=== PATIENT | female | born 1955 | race American Indian/Alaskan Native ===

== ENCOUNTER 2017-11-29 16:04 | Inpatient (IN) | payer OTHER ==
[2017-11-29] MEDS ORDERED: Sodium Chloride 0.9% 1,000 ML IV ONE (16:45)
[2017-11-29] MEDS ORDERED: Belladonna-Phenobarbital PO STA (16:45)
[2017-11-29 17:07] LABS: BASO % 0.3 % (0.0-2.0); EOS # 0.1 K/uL (0.0-0.7); EOS % 0.6 % (0.0-4.0); HEMOGLOBIN 14.4 g/dL (11.0-16.0); LYMPH # 2.2 K/uL (1.0-4.3); LYMPH % 14.8 % (20.0-40.0); MEAN CELL VOLUME 91.9 fL (81.0-99.0); MEAN CORPUSCULAR HEMOGLOBIN 30.3 pg (27.0-31.0); MONO # 0.8 K/uL (0.0-0.8); MONO % 5.5 % (0.0-10.0); NEUT # 11.5 K/uL (1.8-7.0); NEUT % 78.8 % (50.0-75.0); NRBC % 0.1 % (0.0-2.0); RBC 4.75 Mil/uL (3.80-5.20); RED CELL DISTRIBUTION WIDTH 13.6 % (11.5-14.5); WHITE BLOOD COUNT 14.6 K/uL (4.8-10.8)
[2017-11-29] MEDS ORDERED: Sodium Chloride 0.9% 1,000 ML ONE (17:08)
[2017-11-29] MEDS ORDERED: Belladonna-Phenobarbital ONE (17:08)
[2017-11-29 17:18] LABS: ALB/GLOB RATIO 1.5 (1.0-2.1); ALBUMIN 4.8 g/dL (3.5-5.0); CALCIUM 9.6 mg/dl (8.6-10.4)
[2017-11-29] MEDS ORDERED: Iohexol 240 (50 ml) PO STA (18:03)
[2017-11-29] MEDS ORDERED: Iohexol 240 (50 ml) ONE (18:23)
[2017-11-29 18:53] LABS: SQUAMOUS EPITHIAL 9 /hpf (0-5); URINE BACTERIA FEW (<OCC); URINE BILIRUBIN NEGATIVE (NEGATIVE); URINE BLOOD NEGATIVE (NEGATIVE); URINE CLARITY Hazy (Clear); URINE COLOR Yellow (YELLOW); URINE GLUCOSE (UA) NORMAL (Normal); URINE LEUKOCYTE ESTERASE 2+ Leu/uL (Negative); URINE PROTEIN NEGATIVE (NEGATIVE); URINE UROBILINOGEN NORMAL mg/dL (0.2-1.0)
[2017-11-29] MEDS ORDERED: Morphine 4 MG/ML VIAL ONE (20:39)
--- NOTE | 2017-11-29 21:06 | C.PDOC ---
Time Seen by Provider: 11/29/17 16:37 Chief Complaint (Nursing): Abdominal Pain History Per: Patient, Family Onset/Duration Of Symptoms: Days (2) Current Symptoms Are (Timing): Still Present Severity: Moderate Location Of Pain/Discomfort: RLQ, LLQ, Suprapubic Quality Of Discomfort: "Pain" Associated Symptoms: Nausea, Vomiting Exacerbating Factors: Food Alleviating Factors: None Additional History Per: Prior Records Past Medical History Reviewed: Historical Data, Nursing Documentation, Vital Signs Vital Signs: Last Vital Signs Temp 98.5 F 11/29/17 16:06 Pulse 88 11/29/17 16:06 Resp 20 11/29/17 16:06 BP 127/86 11/29/17 16:06 Pulse Ox 100 11/29/17 16:06 - Medical History PMH: HTN Other Surgeries: Hysterectomy Family History: States: Unknown Family Hx - Social History Hx Alcohol Use: No Hx Substance Use: No - Immunization History Hx Tetanus Toxoid Vaccination: No Hx Influenza Vaccination: No Hx Pneumococcal Vaccination: No Review Of Systems Except As Marked, All Systems Reviewed And Found Negative. Constitutional: Negative for: Fever, Weakness Cardiovascular: Negative for: Chest Pain Respiratory: Negative for: Shortness of Breath Gastrointestinal: Positive for: Nausea, Vomiting, Abdominal Pain. Negative for : Melena, Hematochezia, Hematemesis Genitourinary: Negative for: Dysuria Musculoskeletal: Negative for: Neck Pain, Back Pain Skin: Negative for: Rash Neurological: Negative for: Weakness, Numbness, Headache Physical Exam - Physical Exam Appears: Non-toxic, No Acute Distress Skin: Normal Color, Warm, Dry, No Rash Head: Atraumatic, Normacephalic Eye(s): bilateral: Normal Inspection, PERRL, EOMI Neck: Normal ROM, Supple Cardiovascular: Rhythm Regular Respiratory: Normal Breath Sounds, No Accessory Muscle Use Gastrointestinal/Abdominal: Soft, Tenderness (lower abdomen) Back: No CVA Tenderness Extremity: Normal ROM Neurological/Psych: Oriented x3, Normal Motor, Normal Sensation ED Course And Treatment - Laboratory Results Result Diagrams: 11/29/17 17:03 11/29/17 17:03 Interpretation Of Abnormal: Renal insufficiency O2 Sat by Pulse Oximetry: 100 Pulse Ox Interpretation: Normal - CT Scan/US CT abd/pelv Other Rad Studies (CT/US): Read By Radiologist, Radiology Report Reviewed CT/US Interpretation: IMPRESSION: Findings consistent with presence of partial small bowel obstruction. Incidental and other non-acute findings are described above. Progress - Interventions Interventions:: Observation, Intravenous fluid - Medications Administered Intravenous: Antiemetic, Opiate - Data Reviewed Data Reviewed: Lab, Diagnostic imaging, Old records - Patient Status Patient status: Partially improved - Continuity of Care Discussed patient case with:: Patient, Family-HIPPA compliant, ED Nurse, On- call PMD-pt unassigned - Patient Plan Patient Plan: Admission Disposition Discussed With : Gerardo Ely Comment: He accepted pt on his service and gave admitting orders to the nurse. Doctor Will See Patient In The: Hospital Counseled Patient/Family Regarding: Studies Performed, Diagnosis - Disposition Disposition: HOSPITALIZED Disposition Time: 21:07 Condition: FAIR - Clinical Impression Clinical Impression: Partial small bowel obstruction
--- NOTE | 2017-11-29 22:36 | CP.PCM.HP ---
History of Present Illness - History of Present Illness History of Present Illness: COMPREHENSIVE HISTORY & PHYSICAL EXAM HPI Patient is admitted for abdominal pain and distention. Patient state they last for a few days patient has been getting lower abdominal pain with distention associated with nausea and vomiting multiple times. Patient was evaluated in emergency room. CAT scan of the abdomen showed partial small bowel obstruction. Patient had a WBC count of 14,000 no fever. Patient has a history of gynecologic ulcer surgery with large scar on the abdomen. PAST HIST. History of hypertension PERSONAL HIST: Smoking. N Alcohol. N Allergy N Travel_- . FAMILY HIST : ROS : Constitutional: Negative for weight change, chills, night sweats, fatigue Eyes : Negative for redness, swelling, itching, discharge, vision changes, blurry vision, double vision, glaucoma, cataracts, Ears: Negative for hearing loss, ringing, , tinnitus, vertigo Nose: Negative for rhinorrhea, stuffiness, sniffing, itching, postnasal drip, discoloration, nasal congestion and epistaxis. Throat: Negative for throat clearing, sore throat, hoarseness, difficulty swallowing and difficulty speaking. Respiratory: Negative for cough, , sputum production, chest tightness, wheezing, pleuritic chest pain ,daytime somnolence, chronic cough, hemoptysis, snoring at night, Cardiovascular: Negative for chest pain, palpitations, orthopnea, PND, Edema of legs, leg cramps, angina, claudication, , irregular heartbeat, Neurology: Negative for irritability, muscle weakness, numbness and tingling, seizures, tremors, migraines, slurred speech, syncope, memory loss, mood changes , recurrent headaches Gastrointestinal: Negative for, constipation, black stools, rectal bleeding, poor appetite, Genitourinary: Negative for frequent urination, hematuria, discharge, incontinence, urinary retention, frequent UTI, Psychiatric: Negative for depression, anxiety/panic, suicidal tendencies, Musculoskeletal: Negative for swollen joints, back pain, , neck pain, morning stiffness of joints, . Skin: Negative for rash, ulcers, itching, dry skin and pigmented lesions. P/E: Constitutional: Appears stated age and in no apparent distress. Head: Normocephalic. Ears: External ear canals patent without inflammation. Tympanic membranes intact with normal light reflex and landmark. Eyes: Pupils are central, bilaterally equal, symmetrical and reacts to light with normal movements and no icterus or pallor. Nose: External nares are patent. Mucosa is pink Mouth-Throat: Good general appearance and condition. No post-pharyngeal/oropharyngeal erythema and tonsillar hypertrophy. Good dental hygiene. Neck-Lymphatic: Neck is supple with normal ROM, no thyromegaly, lymph nodes or masses. JVD is normal with no carotid bruit. Lungs: Clear to percussion and auscultation with bilateral normal air entry. Cardiovascular: S1 and S2 are normal with no murmurs, gallops and rub. GI Exam: No hepatomegaly. Abdomen is soft and -tender. No Organomegaly , masses or hernias are evident and bowel sounds are normal and active. Neurology: Higher function and all cranial nerves intact, with no gross motor or sensory deficit. Superficial and deep reflexes are normal with downwards planters. No cerebellar deficit with normal gait. Musculoskeletal: No tender spots with normal curvature of the spine with no swelling or restricted ROM of the small and large joints. Extremities: Homans sign absent. Intact pulses with no pitting edema, calf tenderness or skin color changes. Skin: No rash, eruptions or abnormal skin pigmentation LAB/RADIOLOGY: ASSESMENT : Partial small bowel obstruction probably secondary to a physician from previous gynecologic surgery. Hypertension PLAN: Plan nothing by mouth, IV fluids septic workup and surgical evaluation. Present on Admission - Present on Admission Any Indicators Present on Admission: No Past Patient History - Past Social History Smoking Status: Never Smoked - CARDIAC Hx Hypertension: Yes - PSYCHIATRIC Hx Substance Use: No - SURGICAL HISTORY Hx Surgeries: Yes Other/Comment: bunions - ANESTHESIA Hx Anesthesia: No Hx Anesthesia Reactions: No Meds Allergies/Adverse Reactions: Allergies Allergy/AdvReac Type Severity Reaction Status Date / Time chloroquine Allergy RASH Verified 11/29/17 16:12 Results - Vital Signs Recent Vital Signs: Last Vital Signs Temp 98.5 F 11/29/17 16:06 Pulse 88 11/29/17 16:06 Resp 20 11/29/17 16:06 BP 127/86 11/29/17 16:06 Pulse Ox 100 11/29/17 21:07 - Labs Result Diagrams: 11/29/17 17:03 11/29/17 17:03 Labs: Laboratory Results - last 24 hr 11/29/17 11/29/17 11/29/17 17:03 17:03 18:41 WBC 14.6 H RBC 4.75 Hgb 14.4 Hct 43.6 MCV 91.9 MCH 30.3 MCHC 33.0 RDW 13.6 Plt Count 268 MPV 9.0 Neut % (Auto) 78.8 H Lymph % (Auto) 14.8 L Dupage % (Auto) 5.5 Eos % (Auto) 0.6 Baso % (Auto) 0.3 Neut # (Auto) 11.5 H Lymph # (Auto) 2.2 Dup[place] # (Auto) 0.8 Eos # (Auto) 0.1 Baso # (Auto) 0.0 Sodium 138 Potassium 4.4 Chloride 98 Carbon Dioxide 26 Anion Gap 19 BUN 31 H Creatinine 1.7 H Est GFR ( Amer) 37 Est GFR (Non-Af Amer) 30 Random Glucose 136 H Calcium 9.6 Total Bilirubin 1.1 AST 43 H ALT 22 Alkaline Phosphatase 72 Total Protein 8.1 Albumin 4.8 Globulin 3.2 Albumin/Globulin Ratio 1.5 Lipase 22 L Urine Color Yellow Urine Clarity Hazy Urine pH 6.0 Ur Specific Dixon 1.008 Urine Protein Negative Urine Glucose (UA) Normal Urine Ketones Trace Urine Blood Negative Urine Nitrate Negative Urine Bilirubin Negative Urine Urobilinogen Normal Ur Leukocyte Esterase 2+ H Urine WBC (Auto) 15 H Urine RBC (Auto) 1 Ur Squamous Epith Cells 9 H Urine Bacteria Few H
[2017-11-29] MEDS: Dextrose 5%/0.45% NS 1,000 ML IV SCH (23:29)
[2017-11-30] MEDS: Dextrose 5%/0.45% NS 1,000 ML IV SCH ×3 (05:52→11:23)
--- NOTE | 2017-11-30 08:48 | CT ---
PROCEDURE: CT Abdomen and Pelvis without intravenous contrast HISTORY: abd pain, Vomiting COMPARISON: None. TECHNIQUE: Contiguous images were obtained from the domes of the diaphragms to the upper thighs without the administration of intravenous contrast. Oral contrast was administered. Radiation dose: Total exam DLP = 313 mGy-cm. This CT exam was performed using one or more of the following dose reduction techniques: Automated exposure control, adjustment of the mA and/or kV according to patient size, and/or use of iterative reconstruction technique. FINDINGS: LOWER THORAX: Unremarkable. LIVER: Unremarkable. No gross lesion or ductal dilatation. GALLBLADDER AND BILE DUCTS: Unremarkable. PANCREAS: Fatty atrophy. No gross lesion or ductal dilatation. SPLEEN: Unremarkable. ADRENALS: Unremarkable. No mass. KIDNEYS AND URETERS: 1.8 cm right lower pole cyst. No hydronephrosis. No solid mass. VASCULATURE: Unremarkable. No aortic aneurysm. BOWEL: Dilated small bowel loops measuring up to 4.0 cm with abrupt transition in the anterior abdominal midline (series 3, image 95) in the region of the umbilicus. No gross mural thickening. APPENDIX: Unremarkable. Normal appendix. PERITONEUM: Unremarkable. No free fluid. No free air. LYMPH NODES: Unremarkable. No enlarged lymph nodes. BLADDER: Unremarkable. REPRODUCTIVE: Unremarkable. BONES: No acute fracture. OTHER FINDINGS: None. IMPRESSION: Small-bowel obstruction with transition zone in the anterior abdominal midline in the region of the umbilicus.
[2017-11-30] MEDS ORDERED: Lactated Ringer's 1,000 ML IV ONE ×2 (13:31→17:24)
--- NOTE | 2017-11-30 13:52 | CP.PCM.PN ---
Subjective - Date & Time of Evaluation Date of Evaluation: 11/30/17 Time of Evaluation: 13:49 - Subjective Subjective: CHIEF COMPLAINTS TODAY : Patient is still complaining of lower abdominal pain and distention with nausea and vomiting. Patient is afebrile, WBC count is still 14,000 ROS. HEENT : N. Resp : No cough, wheezing ,pleuritic CP ,or hemoptysis Cardio : No anginal CP, PND, orthopnea, palpitation GI : No GI bleeding . 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 Musculoskel : No joint swelling , Derm : No rash Psych : Normal affect. Ext : No swelling ,calf pain PE. Pt. is alert awake in no distress. V.S As noted in the chart Head ,ear nose,throat and eyes : Normal. Neck : Supple with normal carotids. Lungs: Clear air entry. Heart : S1 & S2 normal with S4. No murmur. Abd : Soft tender with distension Neuro : Moves all ext. with no localized deficit. Ext : No edema with intact pulses.Non tender calves Derm : No rashes or decubitus ulcer. LABS/RADIOLOGY: ASSESSMENT/PLAN : Surgical evaluation noted. Patient is scheduled for urgent expiratory laparotomy with possible lysis of the adhesions. Objective - Vital Signs/Intake and Output Vital Signs (last 24 hours): Temp Pulse Resp BP Pulse Ox 98.3 F 50 L 21 126/72 97 11/30/17 07:00 11/30/17 07:00 11/30/17 07:00 11/30/17 07:00 11/30/17 07:00 - Medications Medications: Current Medications Amlodipine Besylate (Norvasc) 5 mg PO DAILY [facility] Last Admin: 11/30/17 11:37 Dose: 5 mg Dextrose/Sodium Chloride (Dextrose 5%/0.45% Ns 1000 Ml) 1,000 mls @ 120 mls/hr IV .Q8H20M [facility] Last Admin: 11/30/17 11:23 Dose: 120 mls/hr Lactated Ringer's (Lactated Ringer's) 1,000 mls @ 500 mls/hr IV .Q2H ONE Stop: 11/30/17 15:30 Morphine Sulfate (Morphine) 4 mg IVP Q6 PRN PRN Reason: Pain, severe (8-10) Pneumococcal Polyvalent Vaccine (Pneumovax 23 Vaccine) 0.5 ml IM .ONCE ONE Stop: 12/03/17 10:01 - Labs Labs: 11/29/17 17:03 11/29/17 17:03
[2017-11-30] MEDS ORDERED: Rocuronium 10 mg/ml (5 ml) ONE (15:22)
[2017-11-30] MEDS ORDERED: Propofol 10 mg/ml Inj (20 ML) ONE (15:22)
[2017-11-30] MEDS ORDERED: ceFAZolin 1 gm in NS 1 GM/100 ML BAG IVPB ONE (15:59)
[2017-11-30] MEDS ORDERED: metroNIDAZOLE IV 500 mg/100 ml 500 MG/100 ML BAG ONE (16:00)
[2017-11-30 17:52] LABS: BASO % 0.5 % (0.0-2.0); EOS # 0.1 K/uL (0.0-0.7); EOS % 1.1 % (0.0-4.0); HEMOGLOBIN 12.6 g/dL (11.0-16.0); LYMPH # 2.3 K/uL (1.0-4.3); LYMPH % 24.4 % (20.0-40.0); MEAN CELL VOLUME 92.3 fL (81.0-99.0); MEAN CORPUSCULAR HEMOGLOBIN 30.2 pg (27.0-31.0); MEAN CORPUSCULAR HGB CONC 32.7 g/dL (33.0-37.0); MONO # 0.5 K/uL (0.0-0.8); MONO % 5.2 % (0.0-10.0); NEUT # 6.4 K/uL (1.8-7.0); NEUT % 68.8 % (50.0-75.0); RBC 4.18 Mil/uL (3.80-5.20); RED CELL DISTRIBUTION WIDTH 13.1 % (11.5-14.5); WHITE BLOOD COUNT 9.3 K/uL (4.8-10.8)
[2017-11-30 18:02] LABS: BLOOD UREA NITROGEN 10 mg/dL (7-17); CALCIUM 8.2 mg/dl (8.6-10.4); GFR AFRICAN-AMERICAN > 60; GFR NON-AFRICAN AMERICAN 50
[2017-11-30] MEDS: HYDROmorphone 0.5 mg/0.5 ml ISec IVP PRN ×3 (18:03→18:45)
[2017-11-30] MEDS: Potassium Ch 20mEq in D5-1/2NS 1,000 ML IV SCH (20:54)
[2017-11-30] MEDS: metroNIDAZOLE IV 500 mg/100 ml 500 MG/100 ML BAG IVPB SCH (22:29)
[2017-11-30] MEDS: Morphine 4 MG/ML VIAL IVP PRN (23:41)
[2017-11-30] MEDS: ceFAZolin IV 1 gm in Dextrose 1 GM/50 ML BAG IVPB SCH (23:45)
[2017-12-01] MEDS: Potassium Ch 20mEq in D5-1/2NS 1,000 ML IV SCH ×2 (04:48→05:31)
--- NOTE | 2017-12-01 05:27 | OP ---
PROCEDURE DATE: 11/30/2017 PREOPERATIVE DIAGNOSIS: Small-bowel obstruction. POSTOPERATIVE DIAGNOSIS: Small-bowel obstruction secondary to adhesions. PROCEDURE PERFORMED: Exploratory laparotomy, extensive lysis of adhesions, small bowel resection. SURGEON: Dayday Mercado MD ANESTHESIA: General. ESTIMATED BLOOD LOSS: 100 mL. POSTOPERATIVE CONDITION: Stable. INDICATIONS FOR SURGERY This is a 62-year-old female who presents with a 3-day history of nausea and vomiting and obstipation. On CAT scan found to have a near complete small bowel obstruction. She is taken to the operating room for exploratory laparotomy, lysis of adhesions to relieve her obstruction. GROSS FINDINGS: The patient had a previous hysterectomy through a midline incision. There were dense, thick adhesions noted in the area of the umbilicus to the abdominal wall. There was a transition zone associated with this. During opening of the abdomen despite careful protection of bowel an enterotomy was made due to these dense adhesions. This area of the bowel was resected as this was felt to be the safest course of management, otherwise besides this area of dense adhesions, there were no other significant adhesions noted in the abdomen and once these had been taken down the small bowel resected, as the small bowel was run and found to be normal prior to closing. DESCRIPTION OF PROCEDURE: The patient was taken to the operating room, general anesthesia was administered and the abdomen was prepped and draped. A midline incision was made and the abdomen was carefully opened up and entered. Around the area of the umbilicus, there were dense adhesions to the small bowel to the abdominal wall and these were taken down carefully using a Metzenbaum scissors. During this maneuver and also during our continued opening of the abdomen, an enterotomy was made. Adhesions were continued to be taken down with Metzenbaum scissors until all the adhesions including the area where the enterotomy had been taken down. A small bowel resection was performed using KATHY and TA staplers in the usual fashion. The mesentery was reapproximated with heavy chromic. A separate small bowel serosal tear was repaired with silk as was a colonic serosal tear. A bleeding abdominal blood vessel was repaired. The abdomen was irrigated with 5 liters of warm saline at the conclusion of the procedure after the small bowel was run and found to have no further injuries and the anastomosis was inspected , found to be intact. After the peritoneal lavage with 5 liters of warm saline was performed, the abdomen was closed with a running double-stranded PDS suture, flaps were raised in the skin superiorly and adjacent tissue transfer closure was performed with Monocryl and skin loreta. The patient tolerated the procedure well, returned to recovery room in stable condition. Dadyay Mercado MD
[2017-12-01] MEDS: metroNIDAZOLE IV 500 mg/100 ml 500 MG/100 ML BAG IVPB SCH ×3 (05:29→21:22)
[2017-12-01] MEDS: Morphine 4 MG/ML VIAL IVP PRN ×2 (05:31→08:58)
[2017-12-01 05:33] LABS: BASO % 0.2 % (0.0-2.0); EOS % 0.2 % (0.0-4.0); HEMOGLOBIN 12.2 g/dL (11.0-16.0); LYMPH # 0.7 K/uL (1.0-4.3); LYMPH % 5.9 % (20.0-40.0); MEAN CORPUSCULAR HEMOGLOBIN 30.1 pg (27.0-31.0); MEAN CORPUSCULAR HGB CONC 32.7 g/dL (33.0-37.0); MEAN PLATELET VOLUME 8.9 fL (7.2-11.7); MONO % 8.4 % (0.0-10.0); NEUT # 9.6 K/uL (1.8-7.0); NEUT % 85.3 % (50.0-75.0); PLATELET COUNT 216 K/uL (130-400); RBC 4.07 Mil/uL (3.80-5.20); RED CELL DISTRIBUTION WIDTH 12.9 % (11.5-14.5); WHITE BLOOD COUNT 11.3 K/uL (4.8-10.8)
[2017-12-01 05:55] LABS: ALB/GLOB RATIO 1.4 (1.0-2.1); ALBUMIN 3.6 g/dL (3.5-5.0); ALT/SGPT 25 U/L (9-52); AST/SGOT 27 U/L (14-36); BLOOD UREA NITROGEN 6 mg/dL (7-17); CALCIUM 8.2 mg/dl (8.6-10.4); GFR AFRICAN-AMERICAN > 60; GFR NON-AFRICAN AMERICAN > 60
[2017-12-01 06:19] LABS: LYMPHOCYTE 9 % (20-40); MONOCYTE 9 % (0-10); NEUTROPHIL 82 % (50-75); PLATELET ESTIMATE NORMAL (NORMAL); TOTAL CELLS COUNTED 100
[2017-12-01 06:20] LABS: ANISOCYTOSIS SLIGHT
[2017-12-01] MEDS ORDERED: Potassium Phosphate 15 MMOLE in Sodium Chloride 0.9% 250 ML IVPB ONE (08:00)
[2017-12-01] MEDS: ceFAZolin IV 1 gm in Dextrose 1 GM/50 ML BAG IVPB SCH ×2 (08:18→16:48)
[2017-12-01] MEDS: Enoxaparin 40 mg Syringe SC SCH (09:57)
--- NOTE | 2017-12-01 11:11 | CP.PCM.CON ---
<Chandni Chase - Last Filed: 12/01/17 13:12> History of Present Illness - History of Present Illness History of Present Illness: Critical Care Consult Note This is a 62 year old female with PMHx HTN with previous hysterectomy admitted for SBO s/p small bowel resection 11/30/[address] Mercado. Admitted to ICU overnight for observation. Past Patient History - Past Social History Smoking Status: Never Smoked - CARDIAC Hx Hypertension: Yes - MUSCULOSKELETAL/RHEUMATOLOGICAL Hx Falls: No - PSYCHIATRIC Hx Substance Use: No - SURGICAL HISTORY Hx Surgeries: Yes Other/Comment: bunions - ANESTHESIA Hx Anesthesia: No Hx Anesthesia Reactions: No Meds Allergies/Adverse Reactions: Allergies Allergy/AdvReac Type Severity Reaction Status Date / Time chloroquine Allergy RASH Verified 11/29/17 16:12 - Medications Medications: Current Medications Amlodipine Besylate (Norvasc) 5 mg PO DAILY [facility] Last Admin: 12/01/17 09:56 Dose: Not Given Enoxaparin Sodium (Lovenox) 40 mg SC DAILY [facility] Last Admin: 12/01/17 09:57 Dose: 40 mg Cefazolin Sodium/Dextrose (Ancef Iv 1 Gm Duplex) 1 gm in 50 mls @ 100 mls/hr IVPB Q8H [facility]ATHLEEN PRN Reason: Protocol Last Admin: 12/01/17 08:18 Dose: 100 mls/hr Metronidazole (Flagyl) 500 mg in 100 mls @ 100 mls/hr IVPB Q8 KATHLEEN PRN Reason: Protocol Last Admin: 12/01/17 05:29 Dose: 100 mls/hr Potassium Chloride/Dextrose/Sod Cl (Potassium Chl 20 Meq In D5-1/2ns) 1,000 mls @ 150 mls/hr IV .Q6H40M [facility] Last Admin: 12/01/17 05:31 Dose: 150 mls/hr Potassium Phosphate 15 mmole/ (Sodium Chloride) 255 mls @ 42.5 mls/hr IVPB ONCE ONE Stop: 12/01/17 13:59 Last Admin: 12/01/17 09:00 Dose: 42.5 mls/hr Morphine Sulfate (Morphine) 4 mg IVP Q6 PRN PRN Reason: Pain, severe (8-10) Last Admin: 12/01/17 08:58 Dose: 4 mg Pneumococcal Polyvalent Vaccine (Pneumovax 23 Vaccine) 0.5 ml IM .ONCE ONE Stop: 12/03/17 10:01 Physical Exam - Constitutional Appears: No Acute Distress - Head Exam Head Exam: NORMAL INSPECTION, NORMOCEPHALIC - Eye Exam Eye Exam: EOMI, Normal appearance, PERRL Pupil Exam: NORMAL ACCOMODATION - ENT Exam ENT Exam: Mucous Membranes Moist - Respiratory Exam Respiratory Exam: Clear to Auscultation Bilateral, NORMAL BREATHING PATTERN - Cardiovascular Exam Cardiovascular Exam: REGULAR RHYTHM - GI/Abdominal Exam GI & Abdominal Exam: Normal Bowel Sounds, Soft Additional comments: abdominal dressing C/D/I - Extremities Exam Extremities exam: Positive for: normal inspection, pedal pulses present. Negative for: pedal edema, tenderness - Psychiatric Exam Psychiatric exam: Normal Affect, Normal Mood - Skin Skin Exam: Dry, Intact, Normal Color, Warm Results - Vital Signs Recent Vital Signs: Last Vital Signs Temp 99.5 F 12/01/17 08:00 Pulse 79 12/01/17 08:00 Resp 16 12/01/17 08:00 BP 154/82 H 12/01/17 08:00 Pulse Ox 98 12/01/17 08:00 - Labs Result Diagrams: 12/01/17 05:17 12/01/17 05:17 Labs: Laboratory Results - last 24 hr 11/30/17 11/30/17 11/30/17 16:37 17:47 17:47 WBC 9.3 RBC 4.18 Hgb 12.6 Hct 38.6 MCV 92.3 MCH 30.2 MCHC 32.7 L RDW 13.1 Plt Count 229 MPV 9.0 Neut % (Auto) 68.8 Lymph % (Auto) 24.4 Wilkes % (Auto) 5.2 Eos % (Auto) 1.1 Baso % (Auto) 0.5 Neut # (Auto) 6.4 Lymph # (Auto) 2.3 Wilkes # (Auto) 0.5 Eos # (Auto) 0.1 Baso # (Auto) 0.0 Neutrophils % (Manual) Lymphocytes % (Manual) Monocytes % (Manual) Platelet Estimate Anisocytosis (manual) Sodium 144 Potassium 3.4 L Chloride 110 H Carbon Dioxide 24 Anion Gap 13 BUN 10 Creatinine 1.1 Est GFR ( Amer) > 60 Est GFR (Non-Af Amer) 50 Random Glucose 135 H Calcium 8.2 L Phosphorus Magnesium Total Bilirubin AST ALT Alkaline Phosphatase Total Protein Albumin Globulin Albumin/Globulin Ratio Blood Type O POSITIVE Antibody Screen Negative 12/01/17 12/01/17 05:17 05:17 WBC 11.3 H RBC 4.07 Hgb 12.2 Hct 37.4 MCV 92.0 MCH 30.1 MCHC 32.7 L RDW 12.9 Plt Count 216 MPV 8.9 Neut % (Auto) 85.3 H Lymph % (Auto) 5.9 L Wilkes % (Auto) 8.4 Eos % (Auto) 0.2 Baso % (Auto) 0.2 Neut # (Auto) 9.6 H Lymph # (Auto) 0.7 L Wilkes # (Auto) 1.0 H Eos # (Auto) 0.0 Baso # (Auto) 0.0 Neutrophils % (Manual) 82 H Lymphocytes % (Manual) 9 L Monocytes % (Manual) 9 Platelet Estimate Normal Anisocytosis (manual) Slight Sodium 139 Potassium 3.5 L Chloride 102 Carbon Dioxide 27 Anion Gap 14 BUN 6 L Creatinine 0.9 Est GFR ( Amer) > 60 Est GFR (Non-Af Amer) > 60 Random Glucose 153 H Calcium 8.2 L Phosphorus 2.4 L Magnesium 1.7 Total Bilirubin 0.7 AST 27 ALT 25 Alkaline Phosphatase 53 Total Protein 6.1 L Albumin 3.6 Globulin 2.5 Albumin/Globulin Ratio 1.4 Blood Type Antibody Screen Assessment & Plan - Assessment and Plan (Free Text) Assessment: This is a 62 year old female with PMHx HTN with previous hysterectomy admitted for SBO s/p small bowel resection 11/30/[address] Mercado. Admitted to ICU overnight for observation. Plan: SBO s/p small bowel resection 11/30/17 All management as per Surgical Team. Patient is stable. Transfer to Med/Surg DW Chandni Beck DO, PGY-1 <Bernardo Sutherland M - Last Filed: 12/02/17 13:59> Meds - Medications Medications: Current Medications Acetaminophen (Tylenol 325mg Tab) 650 mg PO Q4H PRN PRN Reason: Fever >100.4 F Last Admin: 12/01/17 17:54 Dose: 650 mg Amlodipine Besylate (Norvasc) 5 mg PO DAILY [facility] Last Admin: 12/02/17 10:55 Dose: 5 mg Enoxaparin Sodium (Lovenox) 40 mg SC DAILY [facility] Last Admin: 12/02/17 10:55 Dose: 40 mg Metronidazole (Flagyl) 500 mg in 100 mls @ 100 mls/hr IVPB Q8 KATHLEEN PRN Reason: Protocol Last Admin: 12/02/17 05:30 Dose: 100 mls/hr Dextrose/Sodium Chloride (Dextrose 5%/0.45% Ns 1000 Ml) 1,000 mls @ 100 mls/hr IV .Q10H [facility] Last Admin: 12/02/17 08:30 Dose: Not Given Morphine Sulfate (Morphine) 5 mg IV Q4H PRN PRN Reason: pain Last Admin: 12/01/17 11:29 Dose: 5 mg Pneumococcal Polyvalent Vaccine (Pneumovax 23 Vaccine) 0.5 ml IM .ONCE ONE Stop: 12/03/17 10:01 Results - Vital Signs Recent Vital Signs: Last Vital Signs Temp 98.8 F 12/02/17 08:00 Pulse 82 12/02/17 08:00 Resp 20 12/02/17 08:00 BP 158/90 H 12/02/17 08:00 Pulse Ox 98 12/02/17 08:00 - Labs Result Diagrams: 12/02/17 06:32 12/02/17 06:32 Labs: Laboratory Results - last 24 hr 12/02/17 12/02/17 06:32 06:32 WBC 10.8 RBC 4.09 Hgb 12.6 Hct 37.2 MCV 91.0 MCH 30.9 MCHC 34.0 RDW 13.3 Plt Count 218 MPV 9.5 Neut % (Auto) 79.7 H Lymph % (Auto) 11.9 L Wilkes % (Auto) 7.1 Eos % (Auto) 1.1 Baso % (Auto) 0.2 Neut # (Auto) 8.6 H Lymph # (Auto) 1.3 Wilkes # (Auto) 0.8 Eos # (Auto) 0.1 Baso # (Auto) 0.0 Sodium 140 Potassium 3.5 L Chloride 102 Carbon Dioxide 27 Anion Gap 15 BUN 6 L Creatinine 1.0 Est GFR ( Amer) > 60 Est GFR (Non-Af Amer) 56 Random Glucose 118 H Calcium 8.8 Phosphorus 2.9 Magnesium 2.0 Total Bilirubin 0.6 AST 38 H D ALT 25 Alkaline Phosphatase 61 Total Protein 6.5 Albumin 3.6 Globulin 2.9 Albumin/Globulin Ratio 1.2 Assessment & Plan - Assessment and Plan (Free Text) Plan: Patient seen and examined at bedside. Patient awake, alert. (+)flatus post op -surgery team to determine NG tube management -Patient remains hemodynamically stable. - Date & Time Date: 12/01/17 Time: 13:00
[2017-12-01] MEDS ORDERED: Morphine 4 MG/ML VIAL IV PRN (11:17)
[2017-12-01] MEDS: Dextrose 5%/0.45% NS 1,000 ML IV SCH (11:31)
[2017-12-01 12:24] VITALS: RESP 20
--- NOTE | 2017-12-01 13:49 | CP.PCM.PN ---
Subjective - Date & Time of Evaluation Date of Evaluation: 12/01/17 Time of Evaluation: 13:46 - Subjective Subjective: CHIEF COMPLAINTS TODAY : Patient is status post laparotomy with lysis of adhesion recovering uneventful. Patient was observed in ICU overnight because of the previous creatinine of 1.3. Postop the creatinine is 0.9. Besides postop pain patient has no nausea vomiting ROS. HEENT : N. Resp : No cough, wheezing ,pleuritic CP ,or hemoptysis Cardio : No anginal CP, PND, orthopnea, palpitation GI : No GI bleeding . 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 Musculoskel : No joint swelling , Derm : No rash Psych : Normal affect. Ext : No swelling ,calf pain PE. Pt. is alert awake in no distress. V.S As noted in the chart Head ,ear nose,throat and eyes : Normal. Neck : Supple with normal carotids. Lungs: Clear air entry. Heart : S1 & S2 normal with S4. No murmur. Abd : Soft tender with distension Neuro : Moves all ext. with no localized deficit. Ext : No edema with intact pulses.Non tender calves Derm : No rashes or decubitus ulcer. LABS/RADIOLOGY: ASSESSMENT/PLAN : Continue postop care as suggested by surgical team. Monitor lab Objective - Vital Signs/Intake and Output Vital Signs (last 24 hours): Temp Pulse Resp BP Pulse Ox 98.4 F 72 20 160/82 H 98 12/01/17 12:23 12/01/17 12:23 12/01/17 12:23 12/01/17 12:23 12/01/17 12:23 Intake and Output: 12/01/17 12/01/17 11:59 23:59 Intake Total 1562.5 62.5 Output Total 805 Balance 757.5 62.5 - Medications Medications: Current Medications Amlodipine Besylate (Norvasc) 5 mg PO DAILY [facility] Last Admin: 12/01/17 09:56 Dose: Not Given Enoxaparin Sodium (Lovenox) 40 mg SC DAILY [facility] Last Admin: 12/01/17 09:57 Dose: 40 mg Cefazolin Sodium/Dextrose (Ancef Iv 1 Gm Duplex) 1 gm in 50 mls @ 100 mls/hr IVPB Q8H [facility] PRN Reason: Protocol Last Admin: 12/01/17 08:18 Dose: 100 mls/hr Metronidazole (Flagyl) 500 mg in 100 mls @ 100 mls/hr IVPB Q8 [facility] PRN Reason: Protocol Last Admin: 12/01/17 05:29 Dose: 100 mls/hr Potassium Phosphate 15 mmole/ (Sodium Chloride) 255 mls @ 42.5 mls/hr IVPB ONCE ONE Stop: 12/01/17 13:59 Last Admin: 12/01/17 09:00 Dose: 42.5 mls/hr Dextrose/Sodium Chloride (Dextrose 5%/0.45% Ns 1000 Ml) 1,000 mls @ 100 mls/hr IV .Q10H [facility] Last Admin: 12/01/17 11:31 Dose: 100 mls/hr Morphine Sulfate (Morphine) 5 mg IV Q4H PRN PRN Reason: pain Last Admin: 12/01/17 11:29 Dose: 5 mg Pneumococcal Polyvalent Vaccine (Pneumovax 23 Vaccine) 0.5 ml IM .ONCE ONE Stop: 12/03/17 10:01 - Labs Labs: 12/01/17 05:17 12/01/17 05:17
--- NOTE | 2017-12-01 18:27 | PN ---
DATE: 12/01/2017 SUBJECTIVE: The patient is resting comfortably in the intensive care unit on postoperative day #1 after a small bowel resection for a small bowel obstruction. She states that the pain in her abdomen is somewhat better and she is feeling much better. PHYSICAL EXAMINATION: VITAL SIGNS: Her temperature is 98.4, pulse rate 87, BP 145/98, and respiratory rate is 18. LUNGS: Pertinent physical findings included clear lungs. HEART: Regular rate and rhythm of the heart. ABDOMEN: With a clean dry dressing with decreased, but present bowel sounds. LABORATORY DATA: Pertinent labs includes a white blood cell count of 11.3 and H and H of 12.2 and 37.4 and of note, her BUN and creatinine have improved today to 6 and 0.9. The remainder of electrolytes were within normal limits. IMPRESSION AND PLAN: My impression is she is doing well and stable postoperative day #1 from a laparotomy and small bowel resection for small bowel obstruction. She is scheduled to be transferred to the regular bed today. We should continue intravenous hydration and hold back on food for now until she either has a bowel movement or passes gas. She will be placed on ice chips and sips of water. Her antibiotics will be continued for another day or two. Dayday Mercado MD
[2017-12-02] MEDS: ceFAZolin IV 1 gm in Dextrose 1 GM/50 ML BAG IVPB SCH
[2017-12-02] MEDS: Dextrose 5%/0.45% NS 1,000 ML IV SCH ×3 (02:30→18:11)
[2017-12-02] MEDS: metroNIDAZOLE IV 500 mg/100 ml 500 MG/100 ML BAG IVPB SCH ×3 (05:30→22:09)
[2017-12-02 06:43] LABS: BASO % 0.2 % (0.0-2.0); EOS # 0.1 K/uL (0.0-0.7); EOS % 1.1 % (0.0-4.0); HEMOGLOBIN 12.6 g/dL (11.0-16.0); LYMPH # 1.3 K/uL (1.0-4.3); LYMPH % 11.9 % (20.0-40.0); MEAN CORPUSCULAR HEMOGLOBIN 30.9 pg (27.0-31.0); MEAN PLATELET VOLUME 9.5 fL (7.2-11.7); MONO # 0.8 K/uL (0.0-0.8); MONO % 7.1 % (0.0-10.0); NEUT # 8.6 K/uL (1.8-7.0); NEUT % 79.7 % (50.0-75.0); NRBC % 0.1 % (0.0-2.0); RBC 4.09 Mil/uL (3.80-5.20); RED CELL DISTRIBUTION WIDTH 13.3 % (11.5-14.5); WHITE BLOOD COUNT 10.8 K/uL (4.8-10.8)
[2017-12-02 06:59] LABS: ALB/GLOB RATIO 1.2 (1.0-2.1); ALBUMIN 3.6 g/dL (3.5-5.0); ALT/SGPT 25 U/L (9-52); AST/SGOT 38 U/L (14-36); BLOOD UREA NITROGEN 6 mg/dL (7-17); CALCIUM 8.8 mg/dl (8.6-10.4); GFR AFRICAN-AMERICAN > 60; GFR NON-AFRICAN AMERICAN 56
[2017-12-02] MEDS: Enoxaparin 40 mg Syringe SC SCH (10:55)
--- NOTE | 2017-12-02 12:31 | CP.PCM.PN ---
Subjective - Date & Time of Evaluation Date of Evaluation: 12/02/17 Time of Evaluation: 12:30 - Subjective Subjective: CHIEF COMPLAINTS TODAY : Postop #2 Patient is recovering uneventful. No nausea or vomiting. Afebrile ROS. HEENT : N. Resp : No cough, wheezing ,pleuritic CP ,or hemoptysis Cardio : No anginal CP, PND, orthopnea, palpitation GI : No GI bleeding . 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 Musculoskel : No joint swelling , Derm : No rash Psych : Normal affect. Ext : No swelling ,calf pain PE. Pt. is alert awake in no distress. V.S As noted in the chart Head ,ear nose,throat and eyes : Normal. Neck : Supple with normal carotids. Lungs: Clear air entry. Heart : S1 & S2 normal with S4. No murmur. Abd : Soft tender with distension Neuro : Moves all ext. with no localized deficit. Ext : No edema with intact pulses.Non tender calves Derm : No rashes or decubitus ulcer. LABS/RADIOLOGY: ASSESSMENT/PLAN : Continue postop care as suggested by surgical team. Monitor lab Objective - Vital Signs/Intake and Output Vital Signs (last 24 hours): Temp Pulse Resp BP Pulse Ox 98.8 F 82 20 158/90 H 98 12/02/17 08:00 12/02/17 08:00 12/02/17 08:00 12/02/17 08:00 12/02/17 08:00 Intake and Output: 12/02/17 12/02/17 11:59 23:59 Intake Total 800 Balance 800 - Medications Medications: Current Medications Acetaminophen (Tylenol 325mg Tab) 650 mg PO Q4H PRN PRN Reason: Fever >100.4 F Last Admin: 12/01/17 17:54 Dose: 650 mg Amlodipine Besylate (Norvasc) 5 mg PO DAILY [facility] Last Admin: 12/02/17 10:55 Dose: 5 mg Enoxaparin Sodium (Lovenox) 40 mg SC DAILY [facility] Last Admin: 12/02/17 10:55 Dose: 40 mg Metronidazole (Flagyl) 500 mg in 100 mls @ 100 mls/hr IVPB Q8 [facility]ATH[facility] PRN Reason: Protocol Last Admin: 12/02/17 05:30 Dose: 100 mls/hr Dextrose/Sodium Chloride (Dextrose 5%/0.45% Ns 1000 Ml) 1,000 mls @ 100 mls/hr IV .Q10H [facility] Last Admin: 12/02/17 08:30 Dose: Not Given Morphine Sulfate (Morphine) 5 mg IV Q4H PRN PRN Reason: pain Last Admin: 12/01/17 11:29 Dose: 5 mg Pneumococcal Polyvalent Vaccine (Pneumovax 23 Vaccine) 0.5 ml IM .ONCE ONE Stop: 12/03/17 10:01 - Labs Labs: 12/02/17 06:32 12/02/17 06:32
[2017-12-03] MEDS: Dextrose 5%/0.45% NS 1,000 ML IV SCH ×4 (03:30→23:33)
[2017-12-03] MEDS: metroNIDAZOLE IV 500 mg/100 ml 500 MG/100 ML BAG IVPB SCH ×3 (05:30→21:18)
[2017-12-03 09:17] LABS: BASO % 0.4 % (0.0-2.0); EOS # 0.2 K/uL (0.0-0.7); EOS % 1.8 % (0.0-4.0); HEMOGLOBIN 12.9 g/dL (11.0-16.0); LYMPH # 1.8 K/uL (1.0-4.3); LYMPH % 18.7 % (20.0-40.0); MEAN CELL VOLUME 91.1 fL (81.0-99.0); MEAN CORPUSCULAR HEMOGLOBIN 31.3 pg (27.0-31.0); MEAN CORPUSCULAR HGB CONC 34.3 g/dL (33.0-37.0); MEAN PLATELET VOLUME 9.5 fL (7.2-11.7); MONO # 0.7 K/uL (0.0-0.8); MONO % 7.4 % (0.0-10.0); NEUT # 6.7 K/uL (1.8-7.0); NEUT % 71.7 % (50.0-75.0); RBC 4.11 Mil/uL (3.80-5.20); RED CELL DISTRIBUTION WIDTH 12.8 % (11.5-14.5); WHITE BLOOD COUNT 9.4 K/uL (4.8-10.8)
[2017-12-03 09:22] LABS: ALB/GLOB RATIO 1.3 (1.0-2.1); ALBUMIN 3.7 g/dL (3.5-5.0); ALT/SGPT 22 U/L (9-52); AST/SGOT 30 U/L (14-36); BLOOD UREA NITROGEN 10 mg/dL (7-17); CALCIUM 8.9 mg/dl (8.6-10.4); GFR AFRICAN-AMERICAN > 60; GFR NON-AFRICAN AMERICAN 50
[2017-12-03] MEDS: Enoxaparin 40 mg Syringe SC SCH (09:41)
[2017-12-03] MEDS ORDERED: Pneumococcal 23-Valent Vaccine IM ONE (10:00)
--- NOTE | 2017-12-03 15:02 | CP.PCM.PN ---
Subjective - Date & Time of Evaluation Date of Evaluation: 12/03/17 Time of Evaluation: 15:01 - Subjective Subjective: CHIEF COMPLAINTS TODAY : Postop #3 Patient is recovering uneventful. No nausea or vomiting. Afebrile ROS. HEENT : N. Resp : No cough, wheezing ,pleuritic CP ,or hemoptysis Cardio : No anginal CP, PND, orthopnea, palpitation GI : No GI bleeding . 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 Musculoskel : No joint swelling , Derm : No rash Psych : Normal affect. Ext : No swelling ,calf pain PE. Pt. is alert awake in no distress. V.S As noted in the chart Head ,ear nose,throat and eyes : Normal. Neck : Supple with normal carotids. Lungs: Clear air entry. Heart : S1 & S2 normal with S4. No murmur. Abd : Soft tender with no distension Neuro : Moves all ext. with no localized deficit. Ext : No edema with intact pulses.Non tender calves Derm : No rashes or decubitus ulcer. LABS/RADIOLOGY: ASSESSMENT/PLAN : Continue postop care as suggested by surgical team. Monitor lab Objective - Vital Signs/Intake and Output Vital Signs (last 24 hours): Temp Pulse Resp BP Pulse Ox 98.8 F 72 20 112/73 96 12/03/17 07:54 12/03/17 07:54 12/03/17 07:54 12/03/17 07:54 12/03/17 07:54 Intake and Output: 12/03/17 12/03/17 11:59 23:59 Intake Total 800 980 Balance 800 980 - Medications Medications: Current Medications Acetaminophen (Tylenol 325mg Tab) 650 mg PO Q4H PRN PRN Reason: Fever >100.4 F Last Admin: 12/01/17 17:54 Dose: 650 mg Amlodipine Besylate (Norvasc) 5 mg PO DAILY [facility] Last Admin: 12/03/17 09:41 Dose: 5 mg Enoxaparin Sodium (Lovenox) 40 mg SC DAILY [facility] Last Admin: 12/03/17 09:41 Dose: 40 mg Metronidazole (Flagyl) 500 mg in 100 mls @ 100 mls/hr IVPB Q8 [facility]LE[facility] PRN Reason: Protocol Last Admin: 12/03/17 14:24 Dose: 100 mls/hr Dextrose/Sodium Chloride (Dextrose 5%/0.45% Ns 1000 Ml) 1,000 mls @ 100 mls/hr IV .Q10H [facility] Last Admin: 12/03/17 05:30 Dose: 100 mls/hr Morphine Sulfate (Morphine) 5 mg IV Q4H PRN PRN Reason: pain Last Admin: 12/01/17 11:29 Dose: 5 mg - Labs Labs: 12/03/17 08:58 12/03/17 08:58
[2017-12-04] MEDS: Dextrose 5%/0.45% NS 1,000 ML IV SCH ×3 (06:55→14:36)
[2017-12-04] MEDS: Enoxaparin 40 mg Syringe SC SCH (10:07)
--- NOTE | 2017-12-04 15:19 | CP.PCM.PN ---
Subjective - Date & Time of Evaluation Date of Evaluation: 12/04/17 Time of Evaluation: 15:17 - Subjective Subjective: CHIEF COMPLAINTS TODAY : Postop #4 Patient is recovering uneventful. No nausea or vomiting. Afebrile ROS. HEENT : N. Resp : No cough, wheezing ,pleuritic CP ,or hemoptysis Cardio : No anginal CP, PND, orthopnea, palpitation GI : No GI bleeding . 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 Musculoskel : No joint swelling , Derm : No rash Psych : Normal affect. Ext : No swelling ,calf pain PE. Pt. is alert awake in no distress. V.S As noted in the chart Head ,ear nose,throat and eyes : Normal. Neck : Supple with normal carotids. Lungs: Clear air entry. Heart : S1 & S2 normal with S4. No murmur. Abd : Soft tender with no distension Neuro : Moves all ext. with no localized deficit. Ext : No edema with intact pulses.Non tender calves Derm : No rashes or decubitus ulcer. LABS/RADIOLOGY: ASSESSMENT/PLAN : Continue postop care as suggested by surgical team. pATIENT IS TOLERATING FULL LIQUIDS. Objective - Vital Signs/Intake and Output Vital Signs (last 24 hours): Temp Pulse Resp BP Pulse Ox 98.6 F 75 20 128/81 99 12/04/17 07:54 12/04/17 07:54 12/04/17 07:54 12/04/17 07:54 12/04/17 07:54 Intake and Output: 12/04/17 12/04/17 11:59 23:59 Intake Total 920 1160 Output Total 0 Balance 920 1160 - Medications Medications: Current Medications Acetaminophen (Tylenol 325mg Tab) 650 mg PO Q4H PRN PRN Reason: Fever >100.4 F Last Admin: 12/01/17 17:54 Dose: 650 mg Amlodipine Besylate (Norvasc) 5 mg PO DAILY [facility] Last Admin: 12/04/17 10:07 Dose: 5 mg Enoxaparin Sodium (Lovenox) 40 mg SC DAILY [facility] Last Admin: 12/04/17 10:07 Dose: 40 mg Dextrose/Sodium Chloride (Dextrose 5%/0.45% Ns 1000 Ml) 1,000 mls @ 60 mls/hr IV .[id number] [facility] Last Admin: 12/04/17 14:36 Dose: 60 mls/hr Morphine Sulfate (Morphine) 5 mg IV Q4H PRN PRN Reason: pain Last Admin: 12/01/17 11:29 Dose: 5 mg - Labs Labs: 12/03/17 08:58 12/03/17 08:58
[2017-12-04 16:50] LABS: BASO # 0.1 K/uL (0.0-0.2); BASO % 0.7 % (0.0-2.0); EOS # 0.2 K/uL (0.0-0.7); EOS % 2.7 % (0.0-4.0); HEMOGLOBIN 12.3 g/dL (11.0-16.0); LYMPH # 1.6 K/uL (1.0-4.3); LYMPH % 19.8 % (20.0-40.0); MEAN CELL VOLUME 91.4 fL (81.0-99.0); MEAN CORPUSCULAR HEMOGLOBIN 30.3 pg (27.0-31.0); MEAN CORPUSCULAR HGB CONC 33.1 g/dL (33.0-37.0); MEAN PLATELET VOLUME 8.9 fL (7.2-11.7); MONO # 0.6 K/uL (0.0-0.8); NEUT # 5.4 K/uL (1.8-7.0); NEUT % 68.8 % (50.0-75.0); NRBC % 0.1 % (0.0-2.0); RBC 4.05 Mil/uL (3.80-5.20); RED CELL DISTRIBUTION WIDTH 12.8 % (11.5-14.5); WHITE BLOOD COUNT 7.9 K/uL (4.8-10.8)
[2017-12-04 17:02] LABS: BLOOD UREA NITROGEN 8 mg/dL (7-17); CALCIUM 8.7 mg/dl (8.6-10.4); GFR AFRICAN-AMERICAN > 60; GFR NON-AFRICAN AMERICAN 56
--- NOTE | 2017-12-05 07:57 | PN ---
DATE: 12/02/2017 SUBJECTIVE: The patient is resting comfortably, having been transferred to the regular floor yesterday from the ICU. She states she has less pain in her abdomen; however, she has not had a bowel movement or passed flatus yet. She denies nausea or vomiting. PHYSICAL EXAMINATION: VITAL SIGNS: Temperature is 98.8, pulse is 82, BP is 158/90, and respiratory rate is 20 and regular. ABDOMEN: Pertinent physical findings include the abdominal exam, which reveals scant bowel sounds, midline dressing, which is clean and dry. It is scaphoid. There were no findings. IMPRESSION: The patient is doing well today status post small bowel resection for a small bowel obstruction. The patient wants to eat; however, I feel to be conservative is the best course and until she passes the gas or has a bowel movement, we will leave her only water and black tea. ADDENDUM: Her labs today revealed a white count of 10.8, H and H of 12.6 and 37.2, and normal electrolytes. Dayday Mercado MD
[2017-12-05] MEDS: Enoxaparin 40 mg Syringe SC SCH (10:06)
[2017-12-05] MEDS: Dextrose 5%/0.45% NS 1,000 ML IV SCH ×3 (10:10→23:50)
--- NOTE | 2017-12-05 10:21 | CP.PCM.PN ---
Subjective - Date & Time of Evaluation Date of Evaluation: 12/05/17 Time of Evaluation: 10:20 - Subjective Subjective: CHIEF COMPLAINTS TODAY : Postop #3 Patient is recovering uneventful. No nausea or vomiting. MOVING GAS ROS. HEENT : N. Resp : No cough, wheezing ,pleuritic CP ,or hemoptysis Cardio : No anginal CP, PND, orthopnea, palpitation GI : No GI bleeding . 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 Musculoskel : No joint swelling , Derm : No rash Psych : Normal affect. Ext : No swelling ,calf pain PE. Pt. is alert awake in no distress. V.S As noted in the chart Head ,ear nose,throat and eyes : Normal. Neck : Supple with normal carotids. Lungs: Clear air entry. Heart : S1 & S2 normal with S4. No murmur. Abd : Soft tender with no distension Neuro : Moves all ext. with no localized deficit. Ext : No edema with intact pulses.Non tender calves Derm : No rashes or decubitus ulcer. LABS/RADIOLOGY: ASSESSMENT/PLAN : Continue postop care as suggested by surgical team. Monitor lab Objective - Vital Signs/Intake and Output Vital Signs (last 24 hours): Temp Pulse Resp BP Pulse Ox 98.2 F 84 20 128/80 97 12/05/17 08:00 12/05/17 08:00 12/05/17 08:00 12/05/17 08:00 12/05/17 08:00 Intake and Output: 12/04/17 12/05/17 23:59 11:59 Intake Total 2360 600 Output Total 0 Balance 2360 600 - Medications Medications: Current Medications Acetaminophen (Tylenol 325mg Tab) 650 mg PO Q4H PRN PRN Reason: Fever >100.4 F Last Admin: 12/01/17 17:54 Dose: 650 mg Amlodipine Besylate (Norvasc) 5 mg PO DAILY [facility] Last Admin: 12/05/17 10:06 Dose: 5 mg Enoxaparin Sodium (Lovenox) 40 mg SC DAILY [facility] Last Admin: 12/05/17 10:06 Dose: 40 mg Dextrose/Sodium Chloride (Dextrose 5%/0.45% Ns 1000 Ml) 1,000 mls @ 60 mls/hr IV .[id number] [facility] Last Admin: 12/05/17 10:10 Dose: Not Given Morphine Sulfate (Morphine) 5 mg IV Q4H PRN PRN Reason: pain Last Admin: 12/01/17 11:29 Dose: 5 mg - Labs Labs: 12/04/17 16:46 12/04/17 16:46
--- NOTE | 2017-12-05 17:47 | PN ---
DATE: 12/05/2017 SUBJECTIVE: The patient is resting comfortably in bed. She has kept a record of the different times she has passed flatus over the past two days and several have been documented. She has not had a bowel movement yet, however. She states her abdominal pain is less and she is feeling much better. PHYSICAL EXAMINATION: VITAL SIGNS: Her temperature is 98.2, pulse is 84, BP is 128/80, respiratory rate is 20 and regular. ABDOMEN: Pertinent physical findings include the abdominal exam, which revealed a nicely healing abdominal incision as the dressing was removed. There were more active bowel sounds previously. The abdomen is soft and scaphoid with only mild incisional tenderness. The remainder of the physical exam is unremarkable. IMPRESSION AND PLAN: My impression is the patient is progressing nicely. She has been started on a soft diet and is tolerating this well. Once she has a bowel movement, we will advance her to regular diet and most likely discharge her as long as she remains afebrile and her improvement continues. Dayday Mercado MD
[2017-12-06 01:07] VITALS: O2SAT 98
[2017-12-06] MEDS: Enoxaparin 40 mg Syringe SC SCH (09:53)
--- NOTE | 2017-12-06 14:13 | CP.PCM.PN ---
Subjective - Date & Time of Evaluation Date of Evaluation: 12/06/17 Time of Evaluation: 14:13 - Subjective Subjective: CHIEF COMPLAINTS TODAY : Postop # 4 Patient is recovering uneventful. No nausea or vomiting. MOVING GAS ROS. HEENT : N. Resp : No cough, wheezing ,pleuritic CP ,or hemoptysis Cardio : No anginal CP, PND, orthopnea, palpitation GI : No GI bleeding . 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 Musculoskel : No joint swelling , Derm : No rash Psych : Normal affect. Ext : No swelling ,calf pain PE. Pt. is alert awake in no distress. V.S As noted in the chart Head ,ear nose,throat and eyes : Normal. Neck : Supple with normal carotids. Lungs: Clear air entry. Heart : S1 & S2 normal with S4. No murmur. Abd : Soft tender with no distension Neuro : Moves all ext. with no localized deficit. Ext : No edema with intact pulses.Non tender calves Derm : No rashes or decubitus ulcer. LABS/RADIOLOGY: ASSESSMENT/PLAN : Continue postop care as suggested by surgical team. Objective - Vital Signs/Intake and Output Vital Signs (last 24 hours): Temp Pulse Resp BP Pulse Ox 98.7 F 65 20 132/70 98 12/06/17 00:00 12/06/17 00:00 12/06/17 00:00 12/06/17 00:00 12/06/17 00:00 Intake and Output: 12/06/17 12/06/17 11:59 23:59 Intake Total 150 Balance 150 - Medications Medications: Current Medications Acetaminophen (Tylenol 325mg Tab) 650 mg PO Q4H PRN PRN Reason: Fever >100.4 F Last Admin: 12/01/17 17:54 Dose: 650 mg Amlodipine Besylate (Norvasc) 5 mg PO DAILY [facility] Last Admin: 12/06/17 09:53 Dose: 5 mg Enoxaparin Sodium (Lovenox) 40 mg SC DAILY [facility] Last Admin: 12/06/17 09:53 Dose: 40 mg Dextrose/Sodium Chloride (Dextrose 5%/0.45% Ns 1000 Ml) 1,000 mls @ 60 mls/hr IV .[id number] [facility] Last Admin: 12/05/17 23:50 Dose: Not Given - Labs Labs: 12/04/17 16:46 12/04/17 16:46
[2017-12-06] MEDS: Dextrose 5%/0.45% NS 1,000 ML IV SCH (18:08)
[2017-12-07 08:21] VITALS: BP 144/81; PULSE 64; TEMP 97.2
[2017-12-07] MEDS: Enoxaparin 40 mg Syringe SC SCH (09:37)
[2017-12-07] MEDS: Dextrose 5%/0.45% NS 1,000 ML IV SCH (09:39)
--- NOTE | 2017-12-07 13:51 | CP.PCM.DIS ---
Provider - Provider Date of Admission: 11/29/17 21:08 Attending physician: Gerardo Ely MD Time Spent in preparation of Discharge (in minutes): 35 Hospital Course - Lab Results Lab Results: Micro Results 11/30/17 05:43 Blood Blood Culture - Final NO GROWTH AFTER 5 DAYS 11/30/17 05:43 Blood Gram Stain - Final TEST NOT PERFORMED 11/30/17 05:42 Blood Blood Culture - Final NO GROWTH AFTER 5 DAYS 11/30/17 05:42 Blood Gram Stain - Final TEST NOT PERFORMED 12/01/17 13:22 Naris MRSA Culture - Final MRSA NOT DETECTED 11/30/17 20:13 Naris MRSA Culture (Admit) - Final MRSA NOT DETECTED 11/29/17 19:31 Urine Urine Culture - Final No Growth (<1,000 CFU/ML) Most Recent Lab Values WBC 7.9 K/uL (4.8-10.8) 12/04/17 16:46 RBC 4.05 Mil/uL (3.80-5.20) 12/04/17 16:46 Hgb 12.3 g/dL (11.0-16.0) 12/04/17 16:46 Hct 37.1 % (34.0-47.0) 12/04/17 16:46 MCV 91.4 fL (81.0-99.0) 12/04/17 16:46 MCH 30.3 pg (27.0-31.0) 12/04/17 16:46 MCHC 33.1 g/dL (33.0-37.0) 12/04/17 16:46 RDW 12.8 % (11.5-14.5) 12/04/17 16:46 Plt Count 257 K/uL (130-400) 12/04/17 16:46 MPV 8.9 fL (7.2-11.7) 12/04/17 16:46 Neut % (Auto) 68.8 % (50.0-75.0) 12/04/17 16:46 Lymph % (Auto) 19.8 % (20.0-40.0) L 12/04/17 16:46 [place] % (Auto) 8.0 % (0.0-10.0) 12/04/17 16:46 Eos % (Auto) 2.7 % (0.0-4.0) 12/04/17 16:46 Baso % (Auto) 0.7 % (0.0-2.0) 12/04/17 16:46 Neut # (Auto) 5.4 K/uL (1.8-7.0) 12/04/17 16:46 Lymph # (Auto) 1.6 K/uL (1.0-4.3) 12/04/17 16:46 [place] # (Auto) 0.6 K/uL (0.0-0.8) 12/04/17 16:46 Eos # (Auto) 0.2 K/uL (0.0-0.7) 12/04/17 16:46 Baso # (Auto) 0.1 K/uL (0.0-0.2) 12/04/17 16:46 Neutrophils % (Manual) 82 % (50-75) H 12/01/17 05:17 Lymphocytes % (Manual) 9 % (20-40) L 12/01/17 05:17 Monocytes % (Manual) 9 % (0-10) 12/01/17 05:17 Platelet Estimate Normal (NORMAL) 12/01/17 05:17 Anisocytosis (manual) Slight 12/01/17 05:17 Sodium 143 mmol/L (132-148) 12/04/17 16:46 Potassium 3.7 mmol/L (3.6-5.2) 12/04/17 16:46 Chloride 105 mmol/L (98-107) 12/04/17 16:46 Carbon Dioxide 26 mmol/L (22-30) 12/04/17 16:46 Anion Gap 16 (10-20) 12/04/17 16:46 BUN 8 mg/dL (7-17) 12/04/17 16:46 Creatinine 1.0 mg/dL (0.7-1.2) 12/04/17 16:46 Est GFR ( Amer) > 60 12/04/17 16:46 Est GFR (Non-Af Amer) 56 12/04/17 16:46 Random Glucose 100 mg/dL (65-105) 12/04/17 16:46 Calcium 8.7 mg/dl (8.6-10.4) 12/04/17 16:46 Phosphorus 3.0 mg/dL (2.5-4.5) 12/03/17 08:58 Magnesium 2.1 mg/dL (1.6-2.3) 12/03/17 08:58 Total Bilirubin 0.7 mg/dL (0.2-1.3) 12/03/17 08:58 AST 30 U/L (14-36) 12/03/17 08:58 ALT 22 U/L (9-52) 12/03/17 08:58 Alkaline Phosphatase 65 U/L (38-126) 12/03/17 08:58 Total Protein 6.7 g/dL (6.3-8.3) 12/03/17 08:58 Albumin 3.7 g/dL (3.5-5.0) 12/03/17 08:58 Globulin 2.9 gm/dL (2.2-3.9) 12/03/17 08:58 Albumin/Globulin Ratio 1.3 (1.0-2.1) 12/03/17 08:58 Lipase 22 U/L (23-300) L 11/29/17 17:03 Urine Color Yellow (YELLOW) 11/29/17 18:41 Urine Clarity Hazy (Clear) 11/29/17 18:41 Urine pH 6.0 (5.0-8.0) 11/29/17 18:41 Ur Specific [place] 1.008 (1.003-1.030) 11/29/17 18:41 Urine Protein Negative mg/dL (NEGATIVE) 11/29/17 18:41 Urine Glucose (UA) Normal mg/dL (Normal) 11/29/17 18:41 Urine Ketones Trace mg/dL (NEGATIVE) 11/29/17 18:41 Urine Blood Negative (NEGATIVE) 11/29/17 18:41 Urine Nitrate Negative (NEGATIVE) 11/29/17 18:41 Urine Bilirubin Negative (NEGATIVE) 11/29/17 18:41 Urine Urobilinogen Normal mg/dL (0.2-1.0) 11/29/17 18:41 Ur Leukocyte Esterase 2+ Jacob/uL (Negative) H 18 18:41 Urine WBC (Auto) 15 /hpf (0-5) H 18 18:41 Urine RBC (Auto) 1 /hpf (0-3) 11/29/17 18:41 Ur Squamous Epith Cells 9 /hpf (0-5) H 11/29/17 18:41 Urine Bacteria Few (<OCC) H 11/29/17 18:41 Blood Type O POSITIVE 11/30/17 16:37 Antibody Screen Negative 11/30/17 16:37 - Hospital Course Hospital Course: Patient is admitted for abdominal pain and distention. Patient state they last for a few days patient has been getting lower abdominal pain with distention associated with nausea and vomiting multiple times. Patient was evaluated in emergency room. CAT scan of the abdomen showed partial small bowel obstruction. Patient had a WBC count of 14,000 no fever. Patient has a history of gynecologic ulcer surgery with large scar on the abdomen. surgical consult was obtained. His evaluation the patient has a small bowel obstruction and needs expiratory laparotomy. Patient underwent the surgery. 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 All the adhesions were lysed and there was a short segment of small bowel resected. Patient had uneventful postop recovery with no fevers occasional abdominal pain. Patient was evaluated by surgery on the day of admission and clear for discharge. No prescription was given. Patient will be followed by the surgeon in his office. Discharge Exam - Head Exam Head Exam: NORMAL INSPECTION, NORMOCEPHALIC Discharge Plan - Follow Up Plan Condition: FAIR Disposition: HOME/ ROUTINE Instructions: Small Bowel Obstruction (DC) Referrals: Dayday Mercado MD [Staff Provider] -
== END 2017-12-07 13:11 | disposition home or self-care (01) | DRG 337 ==
LOC: C.ER 16:04 → C.9E 21:08 → C.3T 22:54 → C.9E 11-30 18:03 → C.9I 11-30 18:05 → C.3T 12-01 12:06
PROVIDERS: ADMIT Internal Medicine Cardiovascular Disease; ATTEND Internal Medicine Cardiovascular Disease
PROC: 0DN80ZZ Release Small Intestine, Open Approach (ICD-10-PCS; principal; 2017-11-30 13:00)
DX: K56.51 Intestinal adhesions [bands], with partial obstruction (principal); I10 Essential (primary) hypertension; Z90.710 Acquired absence of both cervix and uterus